=== PATIENT | female | born 1960 | race Caucasian/White ===

== ENCOUNTER 2016-12-05 16:35 | Emergency (ER) | payer MEDICAID ==
[~2016-12-05] VITALS: Ht 154.9 cm; Wt 70.5 kg
[~2016-12-05 16:35] MED LIST: ALBU8HFA IH; BECL8.7A6 IH; EFAV1TAB2 PO
[2016-12-05] MEDS ORDERED: HIV PO (16:50)
[2016-12-05] MEDS ORDERED: ABAC1TAB PEG (16:50)
[2016-12-05] MEDS ORDERED: ACETAMINOPHEN 500 MG TABLET PO ONE (17:15)
[2016-12-05] MEDS ORDERED: PredniSONE 20 MG TABLET PO ONE (17:15)
[2016-12-05] MEDS ORDERED: SODIUM CHLORIDE 0.9% 1,000 ML IV ONE (17:15)
[2016-12-05 17:51] LABS: BASOPHILS % (AUTO) 0.5 % (0.0-2.0); EOSINOPHILS % (AUTO) 2.5 % (1.0-6.0); HEMATOCRIT 41.8 % (36-46); HEMOGLOBIN 13.8 g/dL (12.0-16.0); LYMPHOCYTES # (AUTO) 2.8 K/uL (1.0-4.8); LYMPHOCYTES % (AUTO) 26.3 % (22.0-44.0); MEAN CORPUSCULAR HEMOGLOBIN 30.5 pg (26.0-34.0); MEAN CORPUSCULAR HGB CONC 33.1 G/dL (31.0-37.0); MEAN CORPUSCULAR VOLUME 92 fL (80-100); MONOCYTES # (AUTO) 0.9 K/uL (0.1-1.0); MONOCYTES % (AUTO) 8.8 % (2.0-9.0); NEUTROPHILS # (AUTO) 6.7 K/uL (1.8-7.7); NEUTROPHILS % (AUTO) 61.9 % (40.0-70.0); PLATELET COUNT (AUTO) 168 K/uL (150-450); RED BLOOD CELL COUNT(AUTO) 4.53 MIL/uL (4.00-5.20); RED CELL DISTRIBUTION WIDTH 13.9 % (11.5-14.5); WHITE BLOOD COUNT (AUTO) 10.8 K/uL (4.5-11.0)
[2016-12-05 18:39] LABS: ANION GAP 10 mmol/L (8-16); CALCIUM, TOTAL 7.8 mg/dL (8.8-10.5); CARBON DIOXIDE 22 mmol/L (22-29); CHLORIDE 104 mmol/L (98-107); CREATININE 0.85 mg/dL (0.60-1.30); GLOMERULAR FILTR. RATE CALC > 60 mL/min (>60); POTASSIUM 3.9 mmol/L (3.5-5.1); SODIUM SERUM 136 mmol/L (136-145); UREA NITROGEN, BLOOD 15 mg/dL (7-18)
[2016-12-05 18:45] LABS: ALANINE AMINOTRANSFERASE 18 U/L (12-78); ALBUMIN 2.9 g/dL (3.4-5.0); ASPARTATE AMINOTRANSFERASE 17 U/L (15-37); BILIRUBIN,TOTAL 0.3 mg/dL (0.1-1.0); TOTAL PROTEIN, SERUM 7.4 g/dL (6.4-8.2)
[2016-12-05] MEDS ORDERED: LEVOFLOXACIN 500 MG/D5% WATER 100 ML IV ONE (19:15)
[2016-12-05 19:56] LABS: APPEARANCE,URINE CLEAR (CLEAR); GLUCOSE, URINE (UA) NEGATIVE (NEGATIVE); KETONES,URINE NEGATIVE (NEGATIVE); LEUKOCYTE ESTERASE ,URINE NEGATIVE (NEGATIVE); OCCULT BLOOD,URINE NEGATIVE (NEGATIVE); PH,URINE 6.5 (5.0-8.0); PROTEIN,URINE NEGATIVE (NEGATIVE)
[2016-12-05 20:12] VITALS: BP 114/77
[2016-12-05 20:14] LABS: ADD UA MICROSCOPIC NO
== END 2016-12-05 20:25 | disposition home or self-care (01) ==
LOC: EMS 16:38
DX: J18.9 Pneumonia, unspecified organism (principal); J45.909 Unspecified asthma, uncomplicated; F17.210 Nicotine dependence, cigarettes, uncomplicated
CPT/HCPCS: 36415; 71020; 80053; 81003; 83605; 83880; 85025; 87040; 93005; 93041; 96361; 96365; 99285; 99406; J1956; J7030; J7512

== ENCOUNTER 2017-01-15 06:12 | Inpatient (IN) | payer MEDICAID ==
[~2017-01-15] VITALS: Ht 154.9 cm; Wt 73.0 kg
[~2017-01-15 06:12] MED LIST changes: +ABAC1TAB PEG; -EFAV1TAB2 PO; +HIV PO
[2017-01-15] MEDS ORDERED: ALBUTEROL SULFATE 5 MG/ML 20 ML NEB SOLN [BULK] NEB ONE ×2 (06:20→06:30)
[2017-01-15] MEDS ORDERED: 0.9% SODIUM CHLORIDE 5 ML NEB SOLUTION NEB ONE ×2 (06:21→19:51)
[2017-01-15] MEDS ORDERED: IPRATROPIUM BROMIDE 0.5 MG/2.5 ML NEB SOLUTION NEB ONE ×2 (06:30)
[2017-01-15 06:44] LABS: BASOPHILS % (AUTO) 1.2 % (0.0-2.0); EOSINOPHILS % (AUTO) 4.2 % (1.0-6.0); HEMATOCRIT 45.7 % (36-46); HEMOGLOBIN 15.1 g/dL (12.0-16.0); LYMPHOCYTES # (AUTO) 3.9 K/uL (1.0-4.8); LYMPHOCYTES % (AUTO) 30.5 % (22.0-44.0); MEAN CORPUSCULAR HEMOGLOBIN 30.6 pg (26.0-34.0); MEAN CORPUSCULAR HGB CONC 33.1 G/dL (31.0-37.0); MEAN CORPUSCULAR VOLUME 92 fL (80-100); MONOCYTES # (AUTO) 0.9 K/uL (0.1-1.0); MONOCYTES % (AUTO) 6.7 % (2.0-9.0); NEUTROPHILS # (AUTO) 7.3 K/uL (1.8-7.7); NEUTROPHILS % (AUTO) 57.4 % (40.0-70.0); PLATELET COUNT (AUTO) 210 K/uL (150-450); RED BLOOD CELL COUNT(AUTO) 4.95 MIL/uL (4.00-5.20); RED CELL DISTRIBUTION WIDTH 14.2 % (11.5-14.5); WHITE BLOOD COUNT (AUTO) 12.7 K/uL (4.5-11.0)
[2017-01-15] MEDS ORDERED: MethylPREDNISolone SOD SUCC 125 MG/2 ML VIAL IVP ONE (06:45)
[2017-01-15] MEDS ORDERED: KETOROLAC TROMETHAMINE 30 MG/ML VIAL IVP ONE (06:45)
[2017-01-15 06:46] LABS: ANION GAP 13 mmol/L (8-16); CALCIUM, TOTAL 8.5 mg/dL (8.8-10.5); CARBON DIOXIDE 24 mmol/L (22-29); CHLORIDE 102 mmol/L (98-107); CREATININE 0.86 mg/dL (0.60-1.30); GLOMERULAR FILTR. RATE CALC > 60 mL/min (>60); POTASSIUM 4.1 mmol/L (3.5-5.1); SODIUM SERUM 139 mmol/L (136-145); UREA NITROGEN, BLOOD 10 mg/dL (7-18)
[2017-01-15 07:07] LABS: B-TYPE NATRIURETIC PEPTIDE 22 pg/mL (0-100)
[2017-01-15 07:08] LABS: INFLUENZA TYPE B NEGATIVE FOR TYPE B (NEGATIVE)
[2017-01-15 07:11] LABS: ALANINE AMINOTRANSFERASE 27 U/L (12-78); ALBUMIN 3.7 g/dL (3.4-5.0); ASPARTATE AMINOTRANSFERASE 26 U/L (15-37); BILIRUBIN,TOTAL 0.4 mg/dL (0.1-1.0); CREATINE KINASE, TOTAL 76 U/L (26-192); TOTAL PROTEIN, SERUM 9.3 g/dL (6.4-8.2)
[2017-01-15 07:13] LABS: CREATINE KINASE MB < 0.5 ng/mL (0-5)
[2017-01-15] MEDS ORDERED: ALBUTEROL SULFATE 2.5 MG/0.5 ML NEB SOLUTION NEB PRN (10:00)
[2017-01-15] MEDS: IPRATROPIUM BROMIDE 0.5 MG/2.5 ML NEB SOLUTION NEB SCH ×3 (10:00→19:57)
[2017-01-15] MEDS ORDERED: ACETAMINOPHEN 325 MG TABLET PO PRN (10:00)
[2017-01-15] MEDS: ALBUTEROL SULFATE 2.5 MG/0.5 ML NEB SOLUTION NEB SCH ×3 (10:00→19:57)
[2017-01-15] MEDS ORDERED: OxyCODONE HCL/ACETAMINOPHEN 5-325 MG TABLET PO PRN (10:00)
[2017-01-15] MEDS ORDERED: ZOLPIDEM TARTRATE 5 MG TABLET PO PRN (10:00)
[2017-01-15] MEDS: AZITHROMYCIN 500 MG/NS 250 ML IV SCH (10:21)
[2017-01-15 12:11] VITALS: BP 122/59
[2017-01-15] MEDS ORDERED: AUD NEB (12:20)
[2017-01-15] MEDS ORDERED: EMTR1TAB13 PO (12:29)
[2017-01-15] MEDS ORDERED: DOLU50TA PO (12:29)
[2017-01-15] MEDS: MethylPREDNISolone SOD SUCC 125 MG/2 ML VIAL IVP SCH ×2 (14:03→18:22)
[2017-01-15] MEDS: GuaiFENesin/CODEINE [SUGAR FREE] 200-20MG/10 ML SYRUP UDCUP PO PRN ×2 (17:25→20:55)
[2017-01-15] MEDS: HEPARIN SODIUM,PORCINE 5,000 UNITS/ML VIAL SQ SCH (17:25)
[2017-01-15 19:32] VITALS: BP 116/68
[2017-01-15] MEDS: BECLOMETHASONE DIPR 40 MCG/PUFF 8.7 GM INHALER IH SCH (20:48)
[2017-01-15] MEDS ORDERED: ZIDOVUDINE 100 MG CAPSULE PEG SCH (21:00)
[2017-01-15] MEDS ORDERED: ABACAVIR SULFATE 300 MG TABLET PEG SCH (21:00)
[2017-01-15] MEDS ORDERED: DOLUTEGRAVIR SODIUM 50 MG TABLET PO SCH ×2 (21:00)
[2017-01-15 23:11] VITALS: BP 112/62
[2017-01-16] MEDS: DOLUTEGRAVIR SODIUM 50 MG TABLET PO SCH ×2 (00:36→20:15)
[2017-01-16] MEDS: MethylPREDNISolone SOD SUCC 125 MG/2 ML VIAL IVP SCH ×5 (00:37→23:33)
[2017-01-16] MEDS: HEPARIN SODIUM,PORCINE 5,000 UNITS/ML VIAL SQ SCH ×4 (00:37→23:33)
[2017-01-16] MEDS: DESCOVY PO SCH ×3 (00:37→20:15)
[2017-01-16] MEDS: GuaiFENesin/CODEINE [SUGAR FREE] 200-20MG/10 ML SYRUP UDCUP PO PRN ×5 (01:00→23:38)
[2017-01-16] MEDS: ALBUTEROL SULFATE 2.5 MG/0.5 ML NEB SOLUTION NEB SCH ×4 (02:59→20:14)
[2017-01-16] MEDS: IPRATROPIUM BROMIDE 0.5 MG/2.5 ML NEB SOLUTION NEB SCH ×4 (02:59→20:14)
[2017-01-16 04:41] VITALS: BP 119/53
[2017-01-16 07:50] VITALS: BP 113/76
[2017-01-16] MEDS ORDERED: SODIUM CHLORIDE 0.9% 100 ML ONE (08:59)
[2017-01-16] MEDS: BECLOMETHASONE DIPR 40 MCG/PUFF 8.7 GM INHALER IH SCH ×2 (09:01→20:04)
[2017-01-16] MEDS: PANTOPRAZOLE SODIUM 40 MG DR TABLET PO SCH (09:01)
[2017-01-16] MEDS: AZITHROMYCIN 500 MG/NS 250 ML IV SCH (09:52)
[2017-01-16] MEDS: BENZONATATE 100 MG CAPSULE PO SCH ×3 (09:52→20:04)
[2017-01-16 10:45] VITALS: BP 115/61
[2017-01-16 15:00] VITALS: BP 112/59
[2017-01-16 20:26] VITALS: BP 118/63
[2017-01-16 23:58] VITALS: BP 125/72
[2017-01-17] MEDS: IPRATROPIUM BROMIDE 0.5 MG/2.5 ML NEB SOLUTION NEB SCH ×4 (02:20→20:21)
[2017-01-17] MEDS: ALBUTEROL SULFATE 2.5 MG/0.5 ML NEB SOLUTION NEB SCH ×4 (02:21→20:21)
[2017-01-17 04:14] VITALS: BP 102/56
[2017-01-17] MEDS: GuaiFENesin/CODEINE [SUGAR FREE] 200-20MG/10 ML SYRUP UDCUP PO PRN ×4 (05:54→20:35)
[2017-01-17] MEDS: MethylPREDNISolone SOD SUCC 125 MG/2 ML VIAL IVP SCH ×3 (05:54→18:17)
[2017-01-17 06:33] LABS: ALANINE AMINOTRANSFERASE 20 U/L (12-78); ALBUMIN 3.1 g/dL (3.4-5.0); ANION GAP 7 mmol/L (8-16); ASPARTATE AMINOTRANSFERASE 17 U/L (15-37); BASOPHILS # (AUTO) 0.02 K/uL (0.00-0.20); BASOPHILS % (AUTO) 0.1 % (0.0-2.0); BILIRUBIN,TOTAL 0.1 mg/dL (0.1-1.0); CALCIUM, TOTAL 8.9 mg/dL (8.8-10.5); CARBON DIOXIDE 27 mmol/L (22-29); CHLORIDE 108 mmol/L (98-107); CREATININE 0.86 mg/dL (0.60-1.30); EOSINOPHILS % (AUTO) 0.02 % (1.0-6.0); GLOMERULAR FILTR. RATE CALC > 60 mL/min (>60); HEMATOCRIT 40.3 % (36-46); HEMOGLOBIN 13.3 g/dL (12.0-16.0); LYMPHOCYTES # (AUTO) 2.3 K/uL (1.0-4.8); MEAN CORPUSCULAR HEMOGLOBIN 30.8 pg (26.0-34.0); MEAN CORPUSCULAR VOLUME 93 fL (80-100); MONOCYTES # (AUTO) 0.5 K/uL (0.1-1.0); MONOCYTES % (AUTO) 2.6 % (2.0-9.0); NEUTROPHILS # (AUTO) 14.8 K/uL (1.8-7.7); NEUTROPHILS % (AUTO) 84.3 % (40.0-70.0); PLATELET COUNT (AUTO) 193 K/uL (150-450); POTASSIUM 4.3 mmol/L (3.5-5.1); RED BLOOD CELL COUNT(AUTO) 4.33 MIL/uL (4.00-5.20); RED CELL DISTRIBUTION WIDTH 15.3 % (11.5-14.5); SODIUM SERUM 142 mmol/L (136-145); TOTAL PROTEIN, SERUM 7.9 g/dL (6.4-8.2); UREA NITROGEN, BLOOD 20 mg/dL (7-18); WHITE BLOOD COUNT (AUTO) 17.5 K/uL (4.5-11.0)
[2017-01-17 07:40] VITALS: BP 116/67
[2017-01-17] MEDS: HEPARIN SODIUM,PORCINE 5,000 UNITS/ML VIAL SQ SCH ×3 (07:51→20:35)
[2017-01-17] MEDS: PANTOPRAZOLE SODIUM 40 MG DR TABLET PO SCH (08:16)
[2017-01-17] MEDS: BENZONATATE 100 MG CAPSULE PO SCH ×3 (08:16→20:37)
[2017-01-17] MEDS: BECLOMETHASONE DIPR 40 MCG/PUFF 8.7 GM INHALER IH SCH ×2 (08:16→20:35)
[2017-01-17 11:27] VITALS: BP 132/78
[2017-01-17] MEDS: AZITHROMYCIN 500 MG/NS 250 ML IV SCH (11:44)
[2017-01-17 15:19] VITALS: BP 125/77
[2017-01-17 19:58] VITALS: BP 128/72
[2017-01-17] MEDS: DOLUTEGRAVIR SODIUM 50 MG TABLET PO SCH (20:35)
[2017-01-17] MEDS: DESCOVY PO SCH (20:35)
[2017-01-18 00:14] VITALS: BP 121/68
[2017-01-18] MEDS: MethylPREDNISolone SOD SUCC 125 MG/2 ML VIAL IVP SCH ×2 (00:43→05:20)
[2017-01-18] MEDS: IPRATROPIUM BROMIDE 0.5 MG/2.5 ML NEB SOLUTION NEB SCH ×2 (01:36→08:13)
[2017-01-18] MEDS: ALBUTEROL SULFATE 2.5 MG/0.5 ML NEB SOLUTION NEB SCH ×2 (01:36→08:13)
[2017-01-18] MEDS: GuaiFENesin/CODEINE [SUGAR FREE] 200-20MG/10 ML SYRUP UDCUP PO PRN ×2 (03:07→08:41)
[2017-01-18 05:48] VITALS: BP 131/86
[2017-01-18 07:43] VITALS: BP 130/77
[2017-01-18] MEDS: HEPARIN SODIUM,PORCINE 5,000 UNITS/ML VIAL SQ SCH (08:00)
[2017-01-18] MEDS: PANTOPRAZOLE SODIUM 40 MG DR TABLET PO SCH (08:35)
[2017-01-18] MEDS: BECLOMETHASONE DIPR 40 MCG/PUFF 8.7 GM INHALER IH SCH (08:35)
[2017-01-18] MEDS: BENZONATATE 100 MG CAPSULE PO SCH (08:36)
[2017-01-18] MEDS ORDERED: AZIT250T6 PO (09:01)
[2017-01-18] MEDS ORDERED: PRED10TA3 PO (09:01)
[2017-01-18] MEDS ORDERED: SODIUM CHLORIDE 0.9% 250 ML IV ONE (09:09)
[2017-01-18] MEDS: AZITHROMYCIN 500 MG/NS 250 ML IV SCH (09:20)
== END 2017-01-18 11:10 | disposition home or self-care (01) | DRG 720 ==
LOC: EMS 06:13 → 5S 10:35
PROVIDERS: ADMIT Hospitalist; ATTEND Hospitalist
DX: A41.9 Sepsis, unspecified organism (principal); J44.0 Chronic obstructive pulmonary disease with (acute) lower respiratory infection; K75.9 Inflammatory liver disease, unspecified; J45.909 Unspecified asthma, uncomplicated; J44.1 Chronic obstructive pulmonary disease with (acute) exacerbation; F17.210 Nicotine dependence, cigarettes, uncomplicated; J20.9 Acute bronchitis, unspecified; R00.0 Tachycardia, unspecified; Z90.49 Acquired absence of other specified parts of digestive tract; Z28.89 Immunization not carried out for other reason
CPT/HCPCS: 87040; 87804; 93005; 94640; 94644; 96374; 96375; 99285; J0456; J1644; J1885; J2930; J3535; J7050

== ENCOUNTER 2017-03-05 14:31 | Emergency (ER) | payer MEDICAID ==
[~2017-03-05] VITALS: Ht 154.9 cm; Wt 68.2 kg
[~2017-03-05 14:31] MED LIST changes: -ABAC1TAB PEG; +AUD NEB; +AZIT250T6 PO; +DOLU50TA PO; +EMTR1TAB13 PO; -HIV PO; +PRED10TA3 PO
[2017-03-05] MEDS ORDERED: DEXAMETHASONE SOD PHOS 4 MG/ML 5 ML VIAL IM ONE (15:00)
[2017-03-05] MEDS ORDERED: IPRATROPIUM BROMIDE 0.5 MG/2.5 ML NEB SOLUTION NEB ONE (15:00)
[2017-03-05] MEDS ORDERED: ALBUTEROL SULFATE 5 MG/ML 20 ML NEB SOLN [BULK] NEB ONE (15:00)
[2017-03-05] MEDS ORDERED: 0.9% SODIUM CHLORIDE 5 ML NEB SOLUTION NEB ONE (15:06)
[2017-03-05] MEDS ORDERED: CefTRIAXone SODIUM 1 GM/VIAL IM ONE (15:30)
[2017-03-05] MEDS ORDERED: LIDOCAINE HCL/PF 1% 2 ML VIAL IM ONE (15:30)
[2017-03-05] MEDS ORDERED: ACETAMINOPHEN 500 MG TABLET PO ONE (15:30)
[2017-03-05] MEDS ORDERED: IBUPROFEN 600 MG TABLET PO ONE (16:15)
[2017-03-05] MEDS ORDERED: BENZONATATE 100 MG CAPSULE PO ONE (17:45)
[2017-03-05 17:53] VITALS: BP 103/54
== END 2017-03-05 17:54 | disposition home or self-care (01) ==
LOC: EMS 14:36
DX: J44.9 Chronic obstructive pulmonary disease, unspecified (principal); J45.909 Unspecified asthma, uncomplicated; Z71.6 Tobacco abuse counseling
CPT/HCPCS: 96372; 99285; 99406; J0696; J1100; J3490; J7611

== ENCOUNTER 2017-03-07 07:22 | Inpatient (IN) | payer MEDICAID ==
[~2017-03-07] VITALS: Ht 154.9 cm; Wt 75.1 kg
[2017-03-07] MEDS ORDERED: DOXY100C PO (07:41)
[2017-03-07 08:14] LABS: APPEARANCE,URINE CLEAR (CLEAR); GLUCOSE, URINE (UA) NEGATIVE (NEGATIVE); KETONES,URINE NEGATIVE (NEGATIVE); LEUKOCYTE ESTERASE ,URINE NEGATIVE (NEGATIVE); OCCULT BLOOD,URINE NEGATIVE (NEGATIVE)
[2017-03-07 08:15] LABS: PROTEIN,URINE NEGATIVE (NEGATIVE)
[2017-03-07 08:16] LABS: ADD UA MICROSCOPIC NO
[2017-03-07 09:26] LABS: BASOPHILS # (AUTO) 0.04 K/uL (0.00-0.20); BASOPHILS % (AUTO) 0.2 % (0.0-2.0); EOSINOPHILS # (AUTO) 0.01 K/uL (0.00-0.70); EOSINOPHILS % (AUTO) 0.07 % (1.0-6.0); HEMOGLOBIN 14.2 g/dL (12.0-16.0); LYMPHOCYTES % (AUTO) 17.4 % (22.0-44.0); MEAN CORPUSCULAR HGB CONC 32.2 G/dL (31.0-37.0); MEAN CORPUSCULAR VOLUME 93 fL (80-100); MONOCYTES % (AUTO) 6.1 % (2.0-9.0); NEUTROPHILS % (AUTO) 76.2 % (40.0-70.0); PLATELET COUNT (AUTO) 205 K/uL (150-450); RED BLOOD CELL COUNT(AUTO) 4.73 MIL/uL (4.00-5.20); RED CELL DISTRIBUTION WIDTH 14.6 % (11.5-14.5)
[2017-03-07 09:36] LABS: ANION GAP 12 mmol/L (8-16); CALCIUM, TOTAL 8.8 mg/dL (8.8-10.5); CARBON DIOXIDE 25 mmol/L (22-29); CHLORIDE 99 mmol/L (98-107); CREATININE 0.93 mg/dL (0.60-1.30); GLOMERULAR FILTR. RATE CALC > 60 mL/min (>60); POTASSIUM 4.1 mmol/L (3.5-5.1); SODIUM SERUM 136 mmol/L (136-145); UREA NITROGEN, BLOOD 18 mg/dL (7-18)
[2017-03-07] MEDS ORDERED: CefTRIAXone 1 GM/DEXTROSE 50 ML IV ONE (09:45)
[2017-03-07] MEDS ORDERED: AZITHROMYCIN 500 MG/NS 250 ML IV ONE (09:45)
[2017-03-07] MEDS ORDERED: DIAZEPAM 5 MG/ML 2 ML SYRINGE IVP ONE (09:45)
[2017-03-07 09:57] LABS: B-TYPE NATRIURETIC PEPTIDE 156 pg/mL (0-100)
[2017-03-07 10:00] LABS: ALANINE AMINOTRANSFERASE 23 U/L (12-78); ALBUMIN 3.4 g/dL (3.4-5.0); ASPARTATE AMINOTRANSFERASE 21 U/L (15-37); BILIRUBIN,TOTAL 0.6 mg/dL (0.1-1.0); CREATINE KINASE MB 0.5 ng/mL (0-5); CREATINE KINASE, TOTAL 84 U/L (26-192); TOTAL PROTEIN, SERUM 8.3 g/dL (6.4-8.2)
[2017-03-07] MEDS ORDERED: 0.9% SODIUM CHLORIDE 10 ML SYRINGE IVP PRN (10:15)
[2017-03-07] MEDS ORDERED: ACETAMINOPHEN 325 MG TABLET PO PRN (10:15)
[2017-03-07] MEDS ORDERED: ALBUTEROL SULFATE 5 MG/ML 20 ML NEB SOLN [BULK] NEB ONE (10:45)
[2017-03-07] MEDS ORDERED: IPRATROPIUM BROMIDE 0.5 MG/2.5 ML NEB SOLUTION NEB ONE (10:45)
[2017-03-07] MEDS ORDERED: BENZONATATE 100 MG CAPSULE PO ONE (11:30)
[2017-03-07] MEDS ORDERED: IBUPROFEN 600 MG TABLET PO ONE (11:30)
[2017-03-07 18:05] VITALS: BP 111/66
[2017-03-07 19:24] VITALS: BP 122/60
[2017-03-07] MEDS ORDERED: PRED20 PO (20:24)
[2017-03-07] MEDS ORDERED: IPRATROPIUM BROMIDE 0.5 MG/2.5 ML NEB SOLUTION NEB PRN (20:30)
[2017-03-07] MEDS ORDERED: ALBUTEROL SULFATE 2.5 MG/0.5 ML NEB SOLUTION NEB PRN (20:30)
[2017-03-07] MEDS ORDERED: [UNRECOGNIZED DRUG - OTHER] PO SCH (21:00)
[2017-03-07] MEDS: PROMETHAZINE HCL/CODEINE 6.25-10MG/5ML SYRUP UDCUP PO PRN (21:10)
[2017-03-07] MEDS: DOLUTEGRAVIR SODIUM 50 MG TABLET PO SCH (22:00)
[2017-03-08] VITALS (7 sets, daily range): BP systolic 104–160; BP diastolic 56–87
[2017-03-08] MEDS: DOXYCYCLINE 100 MG CAPSULE PO SCH ×3 (01:13→20:42)
[2017-03-08] MEDS: EMTRICITABINE PO SCH ×2 (01:13→20:42)
[2017-03-08] MEDS: DOLUTEGRAVIR SODIUM 50 MG TABLET PO SCH ×2 (01:13→20:42)
[2017-03-08] MEDS: [UNRECOGNIZED DRUG - OTHER] PO SCH ×2 (01:13→20:42)
[2017-03-08] MEDS: MethylPREDNISolone SOD SUCC 40 MG/ML VIAL IVP SCH ×4 (01:14→23:24)
[2017-03-08] MEDS: PROMETHAZINE HCL/CODEINE 6.25-10MG/5ML SYRUP UDCUP PO PRN ×3 (03:36→20:42)
[2017-03-08] MEDS ORDERED: PredniSONE 20 MG TABLET PO SCH (09:00)
[2017-03-08] MEDS: HEPARIN SODIUM,PORCINE 5,000 UNITS/ML VIAL SQ SCH ×3 (09:02→23:26)
[2017-03-08] MEDS: BECLOMETHASONE DIPR 40 MCG/PUFF 8.7 GM INHALER IH SCH ×2 (09:03→23:24)
[2017-03-08] MEDS: AZITHROMYCIN 250 MG TABLET PO SCH (09:07)
[2017-03-08] MEDS: ALBUTEROL SULFATE 2.5 MG/0.5 ML NEB SOLUTION NEB PRN ×3 (09:31→20:13)
[2017-03-08] MEDS: IPRATROPIUM BROMIDE 0.5 MG/2.5 ML NEB SOLUTION NEB PRN ×3 (09:31→20:13)
[2017-03-08] MEDS ORDERED: NITROGLYCERIN 2% (1 GM=INCH) PACKET TP PRN (13:30)
[2017-03-08] MEDS ORDERED: SODIUM CHLORIDE 0.9% 100 ML ONE (13:53)
[2017-03-08] MEDS: CefTRIAXone 1 GM/DEXTROSE 50 ML IV SCH (14:00)
[2017-03-08] MEDS: ASPIRIN 81 MG EC TABLET PO SCH (14:01)
[2017-03-08] MEDS: METOPROLOL TARTRATE 25 MG TABLET PO SCH ×2 (14:02→20:42)
[2017-03-08] MEDS: LISINOPRIL 5 MG TABLET PO SCH (14:02)
[2017-03-08] MEDS: ACETAMINOPHEN 325 MG TABLET PO PRN (20:43)
[2017-03-09] MEDS: ALBUTEROL SULFATE 2.5 MG/0.5 ML NEB SOLUTION NEB PRN ×3 (00:39→19:01)
[2017-03-09] MEDS: IPRATROPIUM BROMIDE 0.5 MG/2.5 ML NEB SOLUTION NEB PRN ×3 (00:39→19:01)
[2017-03-09 04:04] VITALS: BP 106/56
[2017-03-09] MEDS: PROMETHAZINE HCL/CODEINE 6.25-10MG/5ML SYRUP UDCUP PO PRN ×3 (06:17→18:53)
[2017-03-09 06:42] LABS: BASOPHILS # (AUTO) 0.02 K/uL (0.00-0.20); BASOPHILS % (AUTO) 0.2 % (0.0-2.0); EOSINOPHILS % (AUTO) 0 % (1.0-6.0); HEMATOCRIT 39.3 % (36-46); HEMOGLOBIN 12.9 g/dL (12.0-16.0); LYMPHOCYTES # (AUTO) 2.1 K/uL (1.0-4.8); LYMPHOCYTES % (AUTO) 24.5 % (22.0-44.0); MEAN CORPUSCULAR HEMOGLOBIN 31.4 pg (26.0-34.0); MEAN CORPUSCULAR HGB CONC 32.8 G/dL (31.0-37.0); MEAN CORPUSCULAR VOLUME 96 fL (80-100); MONOCYTES # (AUTO) 0.3 K/uL (0.1-1.0); MONOCYTES % (AUTO) 3.6 % (2.0-9.0); NEUTROPHILS # (AUTO) 6.2 K/uL (1.8-7.7); NEUTROPHILS % (AUTO) 71.7 % (40.0-70.0); PLATELET COUNT (AUTO) 187 K/uL (150-450); RED BLOOD CELL COUNT(AUTO) 4.11 MIL/uL (4.00-5.20); RED CELL DISTRIBUTION WIDTH 14.5 % (11.5-14.5); WHITE BLOOD COUNT (AUTO) 8.6 K/uL (4.5-11.0)
[2017-03-09 06:58] LABS: ALBUMIN 2.9 g/dL (3.4-5.0); BILIRUBIN,TOTAL 0.2 mg/dL (0.1-1.0); CALCIUM, TOTAL 9.1 mg/dL (8.8-10.5); CHOL/HDL RATIO 5.5 (3.9-5.7); CREATININE 1.13 mg/dL (0.60-1.30); POTASSIUM 4.1 mmol/L (3.5-5.1); TOTAL PROTEIN, SERUM 7.6 g/dL (6.4-8.2)
[2017-03-09 07:03] LABS: HEMOGLOBIN A1C 6.2 % (4.5-6.2)
[2017-03-09 07:39] VITALS: BP 108/66
[2017-03-09] MEDS: HEPARIN SODIUM,PORCINE 5,000 UNITS/ML VIAL SQ SCH ×3 (08:00→23:33)
[2017-03-09] MEDS: MethylPREDNISolone SOD SUCC 40 MG/ML VIAL IVP SCH (08:11)
[2017-03-09] MEDS: CefTRIAXone 1 GM/DEXTROSE 50 ML IV SCH (08:13)
[2017-03-09] MEDS: BECLOMETHASONE DIPR 40 MCG/PUFF 8.7 GM INHALER IH SCH ×2 (08:13→20:37)
[2017-03-09] MEDS: ASPIRIN 81 MG EC TABLET PO SCH (08:13)
[2017-03-09] MEDS: METOPROLOL TARTRATE 25 MG TABLET PO SCH ×2 (08:14→20:38)
[2017-03-09] MEDS: LISINOPRIL 5 MG TABLET PO SCH (08:15)
[2017-03-09] MEDS: AZITHROMYCIN 250 MG TABLET PO SCH (08:15)
[2017-03-09] MEDS: DOXYCYCLINE 100 MG CAPSULE PO SCH ×2 (08:15→20:37)
[2017-03-09 11:06] VITALS: BP 107/64
[2017-03-09 16:06] VITALS: BP 135/72
[2017-03-09 20:33] VITALS: BP 112/62
[2017-03-09] MEDS: PredniSONE 20 MG TABLET PO SCH (20:37)
[2017-03-09] MEDS: EMTRICITABINE PO SCH (20:37)
[2017-03-09] MEDS: DOLUTEGRAVIR SODIUM 50 MG TABLET PO SCH (20:37)
[2017-03-09] MEDS: [UNRECOGNIZED DRUG - OTHER] PO SCH (20:37)
[2017-03-09] MEDS: ACETAMINOPHEN 325 MG TABLET PO PRN (20:38)
[2017-03-09 23:13] VITALS: BP 99/56
[2017-03-10] MEDS: PROMETHAZINE HCL/CODEINE 6.25-10MG/5ML SYRUP UDCUP PO PRN (01:37)
[2017-03-10 05:51] VITALS: BP 124/66
[2017-03-10 07:23] VITALS: BP 113/67
[2017-03-10 07:27] VITALS: BP 132/84
[2017-03-10] MEDS: HEPARIN SODIUM,PORCINE 5,000 UNITS/ML VIAL SQ SCH (08:00)
[2017-03-10] MEDS: ALBUTEROL SULFATE 2.5 MG/0.5 ML NEB SOLUTION NEB PRN ×2 (08:27→14:32)
[2017-03-10] MEDS: IPRATROPIUM BROMIDE 0.5 MG/2.5 ML NEB SOLUTION NEB PRN ×2 (08:27→14:32)
[2017-03-10] MEDS: CefTRIAXone 1 GM/DEXTROSE 50 ML IV SCH (08:44)
[2017-03-10] MEDS: BECLOMETHASONE DIPR 40 MCG/PUFF 8.7 GM INHALER IH SCH (08:44)
[2017-03-10] MEDS: METOPROLOL TARTRATE 25 MG TABLET PO SCH (08:46)
[2017-03-10] MEDS: ASPIRIN 81 MG EC TABLET PO SCH (08:46)
[2017-03-10] MEDS: PredniSONE 20 MG TABLET PO SCH (08:46)
[2017-03-10] MEDS: DOXYCYCLINE 100 MG CAPSULE PO SCH (08:47)
[2017-03-10] MEDS: LISINOPRIL 5 MG TABLET PO SCH (08:48)
[2017-03-10] MEDS: AZITHROMYCIN 250 MG TABLET PO SCH (08:48)
[2017-03-10 11:20] VITALS: BP 126/82
[2017-03-10] MEDS ORDERED: ASPI81 PO (13:39)
[2017-03-10] MEDS ORDERED: AZIT250T6 PO (13:40)
[2017-03-10] MEDS ORDERED: LISI-660 PO (13:41)
== END 2017-03-10 14:55 | disposition home or self-care (01) | DRG 140 ==
LOC: EMS 07:24 → 5N 16:02
PROVIDERS: ADMIT Family Medicine; ATTEND Family Medicine
DX: J44.1 Chronic obstructive pulmonary disease with (acute) exacerbation (principal); J96.21 Acute and chronic respiratory failure with hypoxia; I21.4 Non-ST elevation (NSTEMI) myocardial infarction; K73.9 Chronic hepatitis, unspecified; J18.9 Pneumonia, unspecified organism; I31.3 Pericardial effusion (noninflammatory); J44.0 Chronic obstructive pulmonary disease with (acute) lower respiratory infection; F41.9 Anxiety disorder, unspecified; E66.9 Obesity, unspecified; Z20.6 Contact with and (suspected) exposure to human immunodeficiency virus [HIV]; F17.210 Nicotine dependence, cigarettes, uncomplicated; J98.11 Atelectasis; J45.909 Unspecified asthma, uncomplicated; Z90.49 Acquired absence of other specified parts of digestive tract; Z79.51 Long term (current) use of inhaled steroids; Z79.899 Other long term (current) drug therapy; Z68.31 Body mass index [BMI] 31.0-31.9, adult
CPT/HCPCS: 83036; 83605; 83735; 87040; 93005; 93306; 94640; 96365; 96375; 99291; J0456; J0696; J1644; J2920; J3535; J7050

== ENCOUNTER 2017-05-23 00:13 | Emergency (ER) | payer MEDICAID ==
[~2017-05-23] VITALS: Ht 162.6 cm; Wt 81.8 kg
[~2017-05-23 00:13] MED LIST changes: +ASPI81 PO; +DOXY100C PO; +LISI-660 PO; -PRED10TA3 PO; +PRED20 PO
[2017-05-23] MEDS ORDERED: ONDANSETRON HCL 4 MG/2 ML VIAL IVP ONE (00:45)
[2017-05-23] MEDS ORDERED: KETOROLAC TROMETHAMINE 30 MG/ML VIAL IVP ONE (00:45)
[2017-05-23] MEDS ORDERED: HYDROmorphone 2 MG/ML SYRINGE IVP ONE (00:45)
[2017-05-23] MEDS ORDERED: LORazepam 2 MG/ML VIAL IVP ONE (00:45)
[2017-05-23 01:12] LABS: HEMATOCRIT 42.7 % (36-46); HEMOGLOBIN 14.4 g/dL (12.0-16.0); MEAN CORPUSCULAR HEMOGLOBIN 30.9 pg (26.0-34.0); MEAN CORPUSCULAR HGB CONC 33.7 G/dL (31.0-37.0); MEAN CORPUSCULAR VOLUME 92 fL (80-100); PLATELET COUNT (AUTO) 164 K/uL (150-450); RED BLOOD CELL COUNT(AUTO) 4.66 MIL/uL (4.00-5.20); RED CELL DISTRIBUTION WIDTH 13.9 % (11.5-14.5); WHITE BLOOD COUNT (AUTO) 10.3 K/uL (4.5-11.0)
[2017-05-23 01:23] LABS: CREATININE 1.12 mg/dL (0.60-1.30)
[2017-05-23 01:29] LABS: ALBUMIN 3.8 g/dL (3.4-5.0); BILIRUBIN,TOTAL 0.4 mg/dL (0.1-1.0); TOTAL PROTEIN, SERUM 7.8 g/dL (6.4-8.2)
[2017-05-23 01:48] LABS: EOSINOPHILS % (MANUAL) 4 % (1-6); LYMPHOCYTES % (MANUAL) 52 % (22-44); REACTIVE LYMPHOCYTES 9 % (0-0); TOTAL CELLS COUNTED 100
[2017-05-23 03:43] VITALS: BP 110/60
== END 2017-05-23 03:47 | disposition home or self-care (01) ==
LOC: EMS 00:15
DX: R51 Headache (principal); M50.90 Cervical disc disorder, unspecified, unspecified cervical region; G89.29 Other chronic pain; J44.9 Chronic obstructive pulmonary disease, unspecified; I10 Essential (primary) hypertension; K75.9 Inflammatory liver disease, unspecified; J45.909 Unspecified asthma, uncomplicated; Z87.891 Personal history of nicotine dependence; Z79.82 Long term (current) use of aspirin; Z90.49 Acquired absence of other specified parts of digestive tract
CPT/HCPCS: 36415; 70450; 72125; 80053; 81025; 85025; 96374; 96375; 99285; J1170; J1885; J2060; J2405

== ENCOUNTER 2017-10-23 10:35 | Emergency (ER) | payer MEDICAID ==
[~2017-10-23] VITALS: Ht 154.9 cm; Wt 65.9 kg
[~2017-10-23 10:35] MED LIST changes: -AZIT250T6 PO; -DOXY100C PO
[2017-10-23] MEDS ORDERED: ALBUTEROL SULFATE 2.5 MG/0.5 ML NEB SOLUTION NEB ONE (12:15)
[2017-10-23] MEDS ORDERED: 0.9% SODIUM CHLORIDE 5 ML NEB SOLUTION NEB ONE (12:35)
[2017-10-23 12:53] VITALS: BP 121/89
== END 2017-10-23 13:21 | disposition home or self-care (01) ==
LOC: EMS 10:37
DX: J44.9 Chronic obstructive pulmonary disease, unspecified (principal); Z90.49 Acquired absence of other specified parts of digestive tract; Z87.891 Personal history of nicotine dependence; Z79.82 Long term (current) use of aspirin
CPT/HCPCS: 71010; 94640; 99283; J7613

== ENCOUNTER 2018-03-21 06:56 | Emergency (ER) | payer MEDICAID ==
[~2018-03-21] VITALS: Ht 154.9 cm; Wt 70.0 kg
[~2018-03-21 06:56] MED LIST changes: -PRED20 PO
[2018-03-21] MEDS ORDERED: IPRATROPIUM BROMIDE 0.5 MG/2.5 ML NEB SOLUTION NEB ONE (08:15)
[2018-03-21] MEDS ORDERED: GuaiFENesin [SUGAR-FREE] 200 MG/10 ML SOLUTION UDCUP PO ONE (08:15)
[2018-03-21] MEDS ORDERED: ACETAMINOPHEN/CODEINE 300-30 MG TABLET PO ONE (08:15)
[2018-03-21] MEDS ORDERED: ALBUTEROL SULFATE 2.5 MG/0.5 ML NEB SOLUTION NEB ONE (08:15)
[2018-03-21] MEDS ORDERED: MethylPREDNISolone SOD SUCC 125 MG/2 ML VIAL IVP ONE (08:15)
[2018-03-21 08:32] LABS: BASOPHILS % (AUTO) 0.9 % (0.0-2.0); EOSINOPHILS % (AUTO) 6.6 % (1.0-6.0); HEMATOCRIT 45.3 % (36-46); HEMOGLOBIN 15.9 g/dL (12.0-16.0); LYMPHOCYTES # (AUTO) 5.7 K/uL (1.0-4.8); LYMPHOCYTES % (AUTO) 53.1 % (22.0-44.0); MEAN CORPUSCULAR HEMOGLOBIN 32.4 pg (26.0-34.0); MEAN CORPUSCULAR VOLUME 93 fL (80-100); MONOCYTES # (AUTO) 0.8 K/uL (0.1-1.0); MONOCYTES % (AUTO) 7.1 % (2.0-9.0); NEUTROPHILS # (AUTO) 3.5 K/uL (1.8-7.7); NEUTROPHILS % (AUTO) 32.3 % (40.0-70.0); PLATELET COUNT (AUTO) 197 K/uL (150-450); RED BLOOD CELL COUNT(AUTO) 4.89 MIL/uL (4.00-5.20); RED CELL DISTRIBUTION WIDTH 12.3 % (11.5-14.5)
[2018-03-21 08:41] LABS: ANION GAP 6 mmol/L (8-16); CARBON DIOXIDE 31 mmol/L (22-29); CHLORIDE 103 mmol/L (98-107); CREATININE 0.74 mg/dL (0.60-1.30); GLOMERULAR FILTR. RATE CALC > 60 mL/min (>60); GLUCOSE,RANDOM 108 mg/dL (70-110); POTASSIUM 4.1 mmol/L (3.5-5.1); SODIUM SERUM 140 mmol/L (136-145); UREA NITROGEN, BLOOD 12 mg/dL (7-18)
[2018-03-21 08:47] LABS: ALANINE AMINOTRANSFERASE 25 U/L (12-78); ALBUMIN 3.5 g/dL (3.4-5.0); ALKALINE PHOSPHATASE 119 U/L (46-116); ASPARTATE AMINOTRANSFERASE 21 U/L (15-37); BILIRUBIN,TOTAL 0.4 mg/dL (0.1-1.0); TOTAL PROTEIN, SERUM 8.1 g/dL (6.4-8.2)
[2018-03-21 09:01] LABS: B-TYPE NATRIURETIC PEPTIDE 28 pg/mL (0-100)
[2018-03-21] MEDS ORDERED: 0.9% SODIUM CHLORIDE 5 ML NEB SOLUTION NEB ONE (09:33)
[2018-03-21 10:00] VITALS: BP 140/79
== END 2018-03-21 10:37 | disposition home or self-care (01) ==
LOC: EMS 06:57
DX: J44.1 Chronic obstructive pulmonary disease with (acute) exacerbation (principal); R07.89 Other chest pain; J06.9 Acute upper respiratory infection, unspecified; J45.909 Unspecified asthma, uncomplicated; Z87.891 Personal history of nicotine dependence
CPT/HCPCS: 36415; 71045; 80053; 83880; 84484; 85025; 93005; 94640; 96374; 99285; 99406; J2930; J7613

== ENCOUNTER 2018-05-27 06:11 | Emergency (ER) | payer MEDICAID ==
[~2018-05-27] VITALS: Ht 154.9 cm; Wt 61.4 kg
[2018-05-27] MEDS ORDERED: BICT1TAB PO (06:22)
[2018-05-27] MEDS ORDERED: PredniSONE 20 MG TABLET PO ONE (07:00)
[2018-05-27] MEDS ORDERED: IPRATROPIUM BROMIDE 0.5 MG/2.5 ML NEB SOLUTION NEB ONE ×2 (07:00→08:45)
[2018-05-27] MEDS ORDERED: ALBUTEROL SULFATE 2.5 MG/0.5 ML NEB SOLUTION NEB ONE ×2 (07:00→08:45)
[2018-05-27] MEDS ORDERED: 0.9% SODIUM CHLORIDE 5 ML NEB SOLUTION NEB ONE ×2 (07:16→08:46)
[2018-05-27 09:41] VITALS: BP 139/63
== END 2018-05-27 10:10 | disposition home or self-care (01) ==
LOC: EMS 06:12
DX: J44.9 Chronic obstructive pulmonary disease, unspecified (principal); J45.909 Unspecified asthma, uncomplicated; Z87.891 Personal history of nicotine dependence; Z79.82 Long term (current) use of aspirin; Z90.49 Acquired absence of other specified parts of digestive tract; Z86.19 Personal history of other infectious and parasitic diseases
CPT/HCPCS: 71045; 94640; 99284; J7512; J7613

== ENCOUNTER 2018-09-01 01:21 | Emergency (ER) | payer MEDICAID ==
[~2018-09-01] VITALS: Ht 157.5 cm; Wt 77.3 kg
[~2018-09-01 01:21] MED LIST changes: +BICT1TAB PO; -DOLU50TA PO; -EMTR1TAB13 PO
[2018-09-01] MEDS ORDERED: 0.9% SODIUM CHLORIDE 5 ML NEB SOLUTION NEB ONE (01:28)
[2018-09-01] MEDS ORDERED: ALBUTEROL SULFATE 5 MG/ML 20 ML NEB SOLN [BULK] NEB ONE (01:30)
[2018-09-01] MEDS ORDERED: IPRATROPIUM BROMIDE 0.5 MG/2.5 ML NEB SOLUTION NEB ONE (01:30)
[2018-09-01] MEDS ORDERED: MethylPREDNISolone SOD SUCC 125 MG/2 ML VIAL IM ONE (02:00)
[2018-09-01 03:30] VITALS: BP 132/88
== END 2018-09-01 03:44 | disposition home or self-care (01) ==
LOC: EMS 01:21
DX: J44.9 Chronic obstructive pulmonary disease, unspecified (principal); J20.9 Acute bronchitis, unspecified; F17.210 Nicotine dependence, cigarettes, uncomplicated; Z90.49 Acquired absence of other specified parts of digestive tract; Z79.82 Long term (current) use of aspirin; Z79.899 Other long term (current) drug therapy
CPT/HCPCS: 71046; 94644; 96372; 99285; 99406; J2930

== ENCOUNTER 2018-10-27 13:39 | Inpatient (IN) | payer MEDICAID ==
[~2018-10-27] VITALS: Ht 162.6 cm; Wt 64.0 kg
[2018-10-27 17:08] LABS: BASOPHILS % (AUTO) 0.7 % (0.0-2.0); EOSINOPHILS % (AUTO) 0.7 % (1.0-6.0); HEMATOCRIT 44.7 % (36-46); HEMOGLOBIN 15.1 g/dL (12.0-16.0); LYMPHOCYTES # (AUTO) 4.2 K/uL (1.0-4.8); LYMPHOCYTES % (AUTO) 19.9 % (22.0-44.0); MEAN CORPUSCULAR HEMOGLOBIN 31.8 pg (26.0-34.0); MEAN CORPUSCULAR HGB CONC 33.8 G/dL (31.0-37.0); MEAN CORPUSCULAR VOLUME 94 fL (80-100); MONOCYTES # (AUTO) 1.8 K/uL (0.1-1.0); MONOCYTES % (AUTO) 8.6 % (2.0-9.0); NEUTROPHILS # (AUTO) 14.8 K/uL (1.8-7.7); NEUTROPHILS % (AUTO) 70.1 % (40.0-70.0); PLATELET COUNT (AUTO) 193 K/uL (150-450); RED BLOOD CELL COUNT(AUTO) 4.74 MIL/uL (4.00-5.20); RED CELL DISTRIBUTION WIDTH 13.4 % (11.5-14.5)
[2018-10-27 17:28] LABS: ANION GAP 9 mmol/L (8-16); CARBON DIOXIDE 25 mmol/L (22-29); CHLORIDE 101 mmol/L (98-107); GLOMERULAR FILTR. RATE CALC > 60 mL/min (>60); GLUCOSE,RANDOM 121 mg/dL (70-110); POTASSIUM 4.1 mmol/L (3.5-5.1); SODIUM SERUM 135 mmol/L (136-145); UREA NITROGEN, BLOOD 13 mg/dL (7-18)
[2018-10-27 17:35] LABS: ALANINE AMINOTRANSFERASE 26 U/L (12-78); ALBUMIN 3.2 g/dL (3.4-5.0); ALKALINE PHOSPHATASE 115 U/L (46-116); ASPARTATE AMINOTRANSFERASE 22 U/L (15-37); BILIRUBIN,TOTAL 0.8 mg/dL (0.1-1.0); TOTAL PROTEIN, SERUM 8.3 g/dL (6.4-8.2)
[2018-10-27] MEDS ORDERED: ALBUTEROL SULFATE 5 MG/ML 20 ML NEB SOLN [BULK] NEB ONE (17:45)
[2018-10-27] MEDS ORDERED: IPRATROPIUM BROMIDE 0.5 MG/2.5 ML NEB SOLUTION NEB ONE (17:45)
[2018-10-27] MEDS ORDERED: AZITHROMYCIN 500 MG/NS 250 ML IV ONE (17:45)
[2018-10-27] MEDS ORDERED: KETOROLAC TROMETHAMINE 30 MG/ML VIAL IVP ONE (17:45)
[2018-10-27] MEDS ORDERED: CefTRIAXone 1 GM/DEXTROSE 50 ML IV ONE (17:45)
[2018-10-27 17:58] LABS: B-TYPE NATRIURETIC PEPTIDE 41 pg/mL (0-100)
[2018-10-27] MEDS ORDERED: 0.9% SODIUM CHLORIDE 5 ML NEB SOLUTION NEB ONE (18:01)
[2018-10-27] MEDS ORDERED: ACETAMINOPHEN 325 MG TABLET PO PRN (19:30)
[2018-10-27] MEDS ORDERED: ONDANSETRON HCL 4 MG/2 ML VIAL IVP PRN ×2 (19:30→21:15)
[2018-10-27] MEDS ORDERED: 0.9% SODIUM CHLORIDE 10 ML SYRINGE IVP PRN ×2 (19:30→21:15)
[2018-10-27 20:20] VITALS: BP 105/55
[2018-10-27] MEDS ORDERED: IPRATROPIUM BROMIDE 0.5 MG/2.5 ML NEB SOLUTION NEB PRN (21:15)
[2018-10-27] MEDS ORDERED: ZOLPIDEM TARTRATE 5 MG TABLET PO PRN (21:15)
[2018-10-27] MEDS ORDERED: ALBUTEROL SULFATE 2.5 MG/0.5 ML NEB SOLUTION NEB PRN (21:15)
[2018-10-27] MEDS ORDERED: IPRATROPIUM BROMIDE 0.5 MG/2.5 ML NEB SOLUTION NEB SCH (23:00)
[2018-10-27] MEDS ORDERED: ALBUTEROL SULFATE 2.5 MG/0.5 ML NEB SOLUTION NEB SCH (23:00)
[2018-10-27 23:30] VITALS: BP 116/61
[2018-10-27] MEDS: ACETAMINOPHEN 325 MG TABLET PO PRN (23:42)
[2018-10-28] MEDS: ALBUTEROL SULFATE 2.5 MG/0.5 ML NEB SOLUTION NEB SCH ×4 (02:00→20:51)
[2018-10-28] MEDS: IPRATROPIUM BROMIDE 0.5 MG/2.5 ML NEB SOLUTION NEB SCH ×4 (02:00→20:51)
[2018-10-28 05:25] VITALS: BP 109/70
[2018-10-28 06:34] LABS: BASOPHILS % (AUTO) 0.6 % (0.0-2.0); EOSINOPHILS % (AUTO) 1.3 % (1.0-6.0); HEMATOCRIT 39.4 % (36-46); HEMOGLOBIN 13.8 g/dL (12.0-16.0); LYMPHOCYTES % (AUTO) 30.7 % (22.0-44.0); MEAN CORPUSCULAR HEMOGLOBIN 33.3 pg (26.0-34.0); MEAN CORPUSCULAR HGB CONC 35.1 G/dL (31.0-37.0); MEAN CORPUSCULAR VOLUME 95 fL (80-100); MONOCYTES # (AUTO) 1.4 K/uL (0.1-1.0); MONOCYTES % (AUTO) 8.6 % (2.0-9.0); NEUTROPHILS # (AUTO) 9.6 K/uL (1.8-7.7); NEUTROPHILS % (AUTO) 58.8 % (40.0-70.0); PLATELET COUNT (AUTO) 163 K/uL (150-450); RED BLOOD CELL COUNT(AUTO) 4.15 MIL/uL (4.00-5.20); RED CELL DISTRIBUTION WIDTH 13.4 % (11.5-14.5)
[2018-10-28 06:57] LABS: ALANINE AMINOTRANSFERASE 23 U/L (12-78); ALBUMIN 2.7 g/dL (3.4-5.0); ALKALINE PHOSPHATASE 103 U/L (46-116); ANION GAP 8 mmol/L (8-16); ASPARTATE AMINOTRANSFERASE 15 U/L (15-37); BILIRUBIN,TOTAL 0.5 mg/dL (0.1-1.0); CALCIUM, TOTAL 8.9 mg/dL (8.8-10.5); CARBON DIOXIDE 26 mmol/L (22-29); CHLORIDE 105 mmol/L (98-107); CREATININE 0.77 mg/dL (0.60-1.30); GLOMERULAR FILTR. RATE CALC > 60 mL/min (>60); GLUCOSE,RANDOM 127 mg/dL (70-110); POTASSIUM 3.6 mmol/L (3.5-5.1); SODIUM SERUM 139 mmol/L (136-145); TOTAL PROTEIN, SERUM 7.4 g/dL (6.4-8.2); UREA NITROGEN, BLOOD 15 mg/dL (7-18)
[2018-10-28 07:25] VITALS: BP 113/65
[2018-10-28] MEDS: PANTOPRAZOLE SODIUM 40 MG/VIAL IVP SCH (08:15)
[2018-10-28] MEDS: ENOXAPARIN SODIUM 40 MG/0.4 ML PF SYRINGE SQ SCH (08:15)
[2018-10-28] MEDS: ACETAMINOPHEN 325 MG TABLET PO PRN ×2 (10:17→21:05)
[2018-10-28 11:29] VITALS: BP 115/68
[2018-10-28 15:55] VITALS: BP 136/60
[2018-10-28] MEDS ORDERED: SODIUM CHLORIDE 0.9% 250 ML IV ONE (16:08)
[2018-10-28] MEDS: CefTRIAXone 1 GM/DEXTROSE 50 ML IV SCH (17:16)
[2018-10-28] MEDS ORDERED: AZITHROMYCIN 500 MG/NS 250 ML IV SCH (19:00)
[2018-10-28 19:28] VITALS: BP 100/69
[2018-10-28 23:59] VITALS: BP 122/65
[2018-10-29] MEDS: IPRATROPIUM BROMIDE 0.5 MG/2.5 ML NEB SOLUTION NEB SCH ×2 (02:28→07:46)
[2018-10-29] MEDS: ALBUTEROL SULFATE 2.5 MG/0.5 ML NEB SOLUTION NEB SCH ×2 (02:28→07:46)
[2018-10-29 05:09] VITALS: BP 130/72
[2018-10-29 06:46] LABS: BASOPHILS % (AUTO) 0.7 % (0.0-2.0); EOSINOPHILS % (AUTO) 5.3 % (1.0-6.0); HEMATOCRIT 39.2 % (36-46); HEMOGLOBIN 13.4 g/dL (12.0-16.0); LYMPHOCYTES # (AUTO) 3.6 K/uL (1.0-4.8); LYMPHOCYTES % (AUTO) 38.9 % (22.0-44.0); MEAN CORPUSCULAR HEMOGLOBIN 32.6 pg (26.0-34.0); MEAN CORPUSCULAR HGB CONC 34.2 G/dL (31.0-37.0); MEAN CORPUSCULAR VOLUME 95 fL (80-100); MONOCYTES # (AUTO) 0.7 K/uL (0.1-1.0); MONOCYTES % (AUTO) 7.2 % (2.0-9.0); NEUTROPHILS # (AUTO) 4.4 K/uL (1.8-7.7); NEUTROPHILS % (AUTO) 47.9 % (40.0-70.0); PLATELET COUNT (AUTO) 200 K/uL (150-450); RED BLOOD CELL COUNT(AUTO) 4.11 MIL/uL (4.00-5.20); RED CELL DISTRIBUTION WIDTH 13.5 % (11.5-14.5)
[2018-10-29 06:52] LABS: ANION GAP 10 mmol/L (8-16); CALCIUM, TOTAL 8.4 mg/dL (8.8-10.5); CARBON DIOXIDE 25 mmol/L (22-29); CHLORIDE 105 mmol/L (98-107); CREATININE 0.77 mg/dL (0.60-1.30); GLOMERULAR FILTR. RATE CALC > 60 mL/min (>60); GLUCOSE,RANDOM 109 mg/dL (70-110); POTASSIUM 3.6 mmol/L (3.5-5.1); SODIUM SERUM 140 mmol/L (136-145); UREA NITROGEN, BLOOD 13 mg/dL (7-18)
[2018-10-29 07:38] VITALS: BP 130/69
[2018-10-29] MEDS: PANTOPRAZOLE SODIUM 40 MG/VIAL IVP SCH (07:58)
[2018-10-29] MEDS: ENOXAPARIN SODIUM 40 MG/0.4 ML PF SYRINGE SQ SCH (09:00)
[2018-10-29 11:45] VITALS: BP 128/70
[2018-10-29] MEDS ORDERED: AMOX1TAB16 PO (12:00)
[2018-10-29] MEDS: CefTRIAXone 1 GM/DEXTROSE 50 ML IV SCH (12:07)
== END 2018-10-29 13:05 | disposition home or self-care (01) | DRG 139 ==
LOC: EMS 13:42 → 6N 18:27
PROVIDERS: ADMIT Hospitalist; ATTEND Hospitalist
DX: J18.1 Lobar pneumonia, unspecified organism (principal); E44.0 Moderate protein-calorie malnutrition; K75.9 Inflammatory liver disease, unspecified; J44.0 Chronic obstructive pulmonary disease with (acute) lower respiratory infection; Z21 Asymptomatic human immunodeficiency virus [HIV] infection status; F17.200 Nicotine dependence, unspecified, uncomplicated; I10 Essential (primary) hypertension; Z90.49 Acquired absence of other specified parts of digestive tract; Z79.899 Other long term (current) drug therapy; Z79.82 Long term (current) use of aspirin; Z68.24 Body mass index [BMI] 24.0-24.9, adult
CPT/HCPCS: 83735; 87040; 93005; 94640; 94644; 99406; C9113; G0378; J0456; J0696; J1650; J1885; J7050

== ENCOUNTER 2020-10-25 01:39 | Emergency (ER) | payer BC, MEDICAID ==
[~2020-10-25] VITALS: Ht 154.9 cm; Wt 68.2 kg
[~2020-10-25 01:39] MED LIST changes: +ACYC200C PO; -ALBU8HFA IH; -ASPI81 PO; -AUD NEB; -BECL8.7A6 IH; -LISI-660 PO; +PANT-31 PO
[2020-10-25] MEDS ORDERED: ATOR10TA84 PO (02:18)
[2020-10-25 02:52] LABS: COVID AG,FIA SOURCE NASOPHARYNGEAL
[2020-10-25 03:00] LABS: BASOPHILS % (AUTO) 0.8 % (0.0-2.0); HEMATOCRIT 43.9 % (36-46); HEMOGLOBIN 14.8 g/dL (12.0-16.0); LYMPHOCYTES # (AUTO) 3.5 K/uL (1.0-4.8); LYMPHOCYTES % (AUTO) 29.7 % (22.0-44.0); MEAN CORPUSCULAR HGB CONC 33.8 G/dL (31.0-37.0); MEAN CORPUSCULAR VOLUME 95 fL (80-100); MONOCYTES # (AUTO) 0.8 K/uL (0.1-1.0); MONOCYTES % (AUTO) 6.8 % (2.0-9.0); NEUTROPHILS # (AUTO) 6.8 K/uL (1.8-7.7); NEUTROPHILS % (AUTO) 57.7 % (40.0-70.0); PLATELET COUNT (AUTO) 179 K/uL (150-450); RED BLOOD CELL COUNT(AUTO) 4.63 MIL/uL (4.00-5.20)
[2020-10-25] MEDS ORDERED: ALBUTEROL SULFATE HFA 90 MCG/PUFF 8 GM INHALER IH ONE (03:00)
[2020-10-25 03:20] LABS: B-TYPE NATRIURETIC PEPTIDE 31 pg/mL (0-100)
[2020-10-25 03:23] LABS: ALANINE AMINOTRANSFERASE 48 U/L (12-78); ALBUMIN 3.5 g/dL (3.4-5.0); ALKALINE PHOSPHATASE 122 U/L (46-116); ASPARTATE AMINOTRANSFERASE 40 U/L (15-37); BILIRUBIN,TOTAL 0.3 mg/dL (0.1-1.0); C-REACTIVE PROTEIN QUANT 0.28 mg/dL (0.00-0.30); CHLORIDE 105 mmol/L (98-107); CREATININE 0.77 mg/dL (0.60-1.30); FERRITIN 60 ng/mL (8-252); GLOMERULAR FILTR. RATE CALC > 60 mL/min (>60); GLUCOSE,RANDOM 136 mg/dL (70-110); LACTATE DEHYDROGENASE 186 U/L (81-234); POTASSIUM 3.8 mmol/L (3.5-5.1); SODIUM SERUM 136 mmol/L (136-145); TOTAL PROTEIN, SERUM 7.9 g/dL (6.4-8.2); UREA NITROGEN, BLOOD 14 mg/dL (7-18)
[2020-10-25 03:34] LABS: INFLUENZA TYPE A NEGATIVE FOR TYPE A (NEGATIVE); INFLUENZA TYPE B NEGATIVE FOR TYPE B (NEGATIVE)
[2020-10-25 03:35] LABS: ANION GAP 5 mmol/L (8-16); CARBON DIOXIDE 26 mmol/L (22-29)
[2020-10-25] MEDS ORDERED: IPRATROPIUM BROMIDE HFA 17 MCG/PUFF 12.9 GM INHALER IH ONE (04:00)
[2020-10-25] MEDS ORDERED: MethylPREDNISolone SOD SUCC 125 MG/2 ML VIAL IVP ONE (04:00)
[2020-10-25 04:31] VITALS: BP 138/78
== END 2020-10-25 04:32 | disposition home or self-care (01) ==
LOC: EMS 01:41
DX: J44.1 Chronic obstructive pulmonary disease with (acute) exacerbation (principal); Z20.828 Contact with and (suspected) exposure to other viral communicable diseases
CPT/HCPCS: 36415; 71045; 80053; 82728; 83605; 83615; 83880; 84145; 84484; 85025; 85379; 86140; 87426; 87804; 93005; 94640; 96374; 99285; J2930; U0003; J3535